=== PATIENT | male | born 1970 | race American Indian/Alaskan Native ===

== ENCOUNTER 2022-03-29 17:00 | Emergency (ER) | payer OTHER ==
[2022-03-29 18:15] VITALS: BP 129/72
[2022-03-29] MEDS ORDERED: HYDROcodone/ACETAMINOPHEN 5-325 MG TAB PO ONE (20:04)
[2022-03-29] MEDS ORDERED: KETOROLAC 10 MG TAB PO ONE (20:04)
[2022-03-29] MEDS ORDERED: ONDANSETRON 4 MG ODT TAB PO ONE (20:04)
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
[2022-03-29] MEDS ORDERED: CYCLOBENZAPRINE 10 MG TAB PO ONE (20:16)
== END 2022-03-29 22:09 | disposition home or self-care (01) ==
LOC: ED 17:00
DX: M54.2 Cervicalgia (principal); I10 Essential (primary) hypertension; E11.9 Type 2 diabetes mellitus without complications; Z79.899 Other long term (current) drug therapy; V87.7XXA Person injured in collision between other specified motor vehicles (traffic), initial encounter; Y93.89 Activity, other specified; Y92.488 Other paved roadways as the place of occurrence of the external cause; Y99.8 Other external cause status
CPT/HCPCS: 99282; J3490; Q0162